=== PATIENT | male | born 1965 | race Two or more races ===

== ENCOUNTER 2023-03-07 16:21 | Emergency (ER) | payer MEDICAID, OTHER ==
[~2023-03-07] VITALS: Ht 167.6 cm; Wt 75.0 kg
[2023-03-07] MEDS ORDERED: ONDANSETRON ODT 4 MG TAB PO ONE (17:00)
[2023-03-07] MEDS ORDERED: MORPHINE SULFATE 4 MG/ML SYR/VIAL IM ONE (17:00)
[2023-03-07 19:52] LABS: Basophils # (auto) 0.1 10 ^3/uL (0-0.2); Basophils % (auto) 0.3 % (0.0-2.0); Eosinophils # (auto) 0 10 ^3/uL (0-0.8); Eosinophils % (auto) 0.3 % (0.0-7.0); Hematocrit 42.1 % (41.0-53.0); Hemoglobin 13.9 g/dL (13.5-17.5); Lymphocytes # (auto) 0.8 10 ^3/uL (0.4-5.4); Lymphocytes % (auto) 4.5 % (10.0-50.0); Mean Corpuscular Hemoglobin 31.5 pg (28.0-32.0); Mean Corpuscular Volume 95.6 fL (80.0-100.0); Monocytes # (auto) 0.9 10 ^3/uL (0-1.3); Monocytes % (auto) 4.9 % (0.0-12.0); Neutrophils # (auto) 16.7 10 ^3/uL (1.6-8.6); Red Blood Cells 4.41 10^6/uL (4.5-5.90); Red Cell Distribution Width 14.7 % (11.8-14.3); White Blood Cell 18.6 10^3/uL (4.4-10.8)
[2023-03-07 20:08] LABS: INR 1.01 (0.9-1.15)
[2023-03-07 20:10] LABS: Albumin 3.8 g/dL (3.4-5.0); Calcium 8.7 mg/dL (8.5-10.1); Potassium 3.8 mmol/L (3.5-5.1)
[2023-03-07 20:14] LABS: BUN/Creatinine Ratio 10.9 (10.0-20.0); Bilirubin, Total 0.4 mg/dL (0.2-1.0); Total Protein 7.3 g/dL (6.4-8.2)
[2023-03-07 20:30] VITALS: PULSE 82; RESP 20; O2SAT 99
[2023-03-07] MEDS ORDERED: HYDROmorphone HCL 2 MG/ML VL/or syr IV ONE ×2 (20:45→23:15)
[2023-03-07] MEDS ORDERED: ONDANSETRON HCL 4 MG/2 ML VIAL IV ONE ×2 (20:45→23:15)
[2023-03-08 00:18] LABS: Urine Bacteria FEW /hpf (None Seen); Urine Blood Negative /uL (Negative); Urine Specific Gravity 1.026 (1.001-1.035); Urine WBC 1 /hpf (0 - 3)
[2023-03-08 01:20] VITALS: TEMP 98.4; O2SAT 100
[2023-03-08] MEDS ORDERED: HYDROmorphone HCL 2 MG/ML VL/or syr ONE (01:40)
[2023-03-08] MEDS ORDERED: HYDROmorphone HCL 2 MG/ML VL/or syr IV ONE (01:45)
[2023-03-08 01:47] VITALS: BP 148/92; PULSE 82; RESP 16
== END 2023-03-08 01:35 | disposition short-term general hospital (02) ==
LOC: ER 16:21 → EDBD 16:21 → ER 03-08 01:35
DX: S32.301A Unspecified fracture of right ilium, initial encounter for closed fracture (principal); F17.210 Nicotine dependence, cigarettes, uncomplicated; W10.8XXA Fall (on) (from) other stairs and steps, initial encounter; Y93.89 Activity, other specified; Y92.89 Other specified places as the place of occurrence of the external cause; Y99.8 Other external cause status
CPT/HCPCS: 36415; 72192; 73552; 80053; 81001; 85025; 85379; 85610; 86850; 86900; 86901; 96372; 96374; 96375; 96376; 99285; J1170; J2270; J2405; Q0162